=== PATIENT | female | born 1940 | race Caucasian/White ===

== ENCOUNTER → 2017-06-28 15:57 | Outpatient (CLI) | payer MEDICARE, BC ==
[2011-01-15 10:54] VITALS: BMI 23.9
== END | disposition home or self-care (01) ==
LOC: D.MAMMO 08:00
DX: Z12.31 Encounter for screening mammogram for malignant neoplasm of breast (principal)

== ENCOUNTER → 2018-10-18 16:30 | Outpatient (CLI) | payer MEDICARE, BC ==
[2011-01-15 10:54] VITALS: BMI 23.9
== END | disposition home or self-care (01) ==
LOC: D.MAMMO 09:45
DX: Z12.31 Encounter for screening mammogram for malignant neoplasm of breast (principal)

== ENCOUNTER → 2020-01-31 19:11 | Outpatient (CLI) | payer MEDICARE, BC ==
[2011-01-15 10:54] VITALS: BMI 23.9
== END | disposition home or self-care (01) ==
LOC: D.MAMMO 16:00
PROVIDERS: ATTEND Family Medicine
DX: Z12.31 Encounter for screening mammogram for malignant neoplasm of breast (principal)

== ENCOUNTER 2021-02-13 11:45 | Outpatient (CLI) | payer MEDICARE, BC ==
[2011-01-15 10:54] VITALS: BMI 23.9
== END 2021-02-13 23:59 | disposition home or self-care (01) ==
LOC: D.MAMMO 11:45
PROVIDERS: ATTEND Family Medicine
DX: Z12.31 Encounter for screening mammogram for malignant neoplasm of breast (principal)